=== PATIENT | male | born 2000 | race Caucasian/White ===

== ENCOUNTER 2018-06-30 19:26 | Emergency (ER) | payer OTHER ==
--- NOTE | 2018-06-30 21:09 | EDPHY ---
H & P Time Seen by Provider: 06/30/18 19:44 HPI/ROS: Chief complaint: Left 4th finger laceration History of present illness: 17-year-old male presents to the emergency department for left 4th finger laceration. He was cutting food when the knife slipped cutting the tip of his finger. Mild pain, minimal bleeding. No report of abnormal coolness or paresthesias. He is still able to move the finger well. His tetanus is up-to-date. Smoking Status: Former smoker Physical Exam: General: Alert, nontoxic Skin: The tip of the fingers avulsed. No involvement of the nail bed. Musculoskeletal: He is flexing and extending the finger in the DIP, PIP and MCP joint well. Vascular: Capillary refill brisk in the finger including the flap Neurologic: Sensation appears intact using light touch and two-point discrimination in the distal finger. Constitutional: Initial Vital Signs Temperature (C) 37.0 C 06/30/18 19:34 Heart Rate 66 06/30/18 19:34 Respiratory Rate 16 06/30/18 19:34 Blood Pressure 129/84 H 06/30/18 19:34 O2 Sat (%) 96 06/30/18 19:34 O2 Delivery Mode Room Air Allergies/Adverse Reactions: No Known Allergies Allergy (Verified 06/30/18 19:34) Home Medications: Medication Instructions Recorded NK [No Known Home Meds] 06/30/18 MDM/Departure - MDM Imaging Results: Imaging Impressions Finger X-Ray 06/30/18 20:14 Impression: No acute osseous findings. Imaging: I viewed and interpreted images myself Procedures: Procedure: Laceration repair. Verbal consent was obtained from the patient. The 0.5 cm laceration on the tip of the left 4th finger was anesthetized in the usual fashion. The wound was irrigated, draped and explored to its base with a gloved finger. There were no deep structures involved. No tendon injury was identified. The wound was repaired with 6 0 Prolene, 5 simple interrupted sutures. The wound repair was simple. The procedure was performed by myself. ED Course/Re-evaluation: Patient seen under the supervision of my secondary supervising physician Dr. Jennifer Yin. Patient presents for laceration to his left ring finger. It does appear neurovascularly intact. X-rays negative. Laceration is repaired. Home care is discussed. He is to follow up with a primary care doctor or hand doctor for recheck. Return precautions are given. Patient voiced understanding and agreement with plan. Differential Diagnosis: Included but not limited to laceration, deep structure injury, foreign body contamination - Depart Disposition: Home, Routine, Self-Care Clinical Impression: Laceration Condition: Good Instructions: Care For Your Stitches (ED), Laceration (ED), Acute Wounds (ED) Additional Instructions: Follow-up with a primary care doctor or hand doctor for continued care Stitches to be removed in 7 days If symptoms worsen or new symptoms develop return to the emergency room for recheck Referrals: NONE *PRIMARY CARE P,. [Primary Care Provider] - As per Instructions Mayank Ingram MD [Medical Doctor] - As per Instructions [facility],. [Clinic] - As per Instructions
[2018-06-30 21:28] VITALS: BP 120/85
== END 2018-06-30 21:28 | disposition home or self-care (01) ==
PROC: 0HQGXZZ Repair Left Hand Skin, External Approach (ICD-10-PCS; principal; 2018-06-30)
DX: S61.215A Laceration without foreign body of left ring finger without damage to nail, initial encounter (principal); Y93.G1 Activity, food preparation and clean up; Y92.000 Kitchen of unspecified non-institutional (private) residence as the place of occurrence of the external cause; W26.0XXA Contact with knife, initial encounter